=== PATIENT | female | born 1980 | race American Indian/Alaskan Native ===

== ENCOUNTER 2018-03-21 08:19 | Emergency (ER) | payer MEDICAID ==
[2018-03-21 08:27] VITALS: O2SAT 98
[2018-03-21] MEDS ORDERED: Sodium Chloride 0.9% 1,000 ML IV STA (09:11)
[2018-03-21 09:49] LABS: BASO % 0.9 % (0.0-2.0); EOS # 0.1 K/uL (0.0-0.7); EOS % 3.1 % (0.0-4.0); HEMOGLOBIN 14.2 g/dL (12.0-16.0); LYMPH # 0.8 K/uL (1.0-4.3); LYMPH % 17.6 % (20.0-40.0); MEAN CELL VOLUME 96.3 fl (81.0-99.0); MEAN CORPUSCULAR HEMOGLOBIN 31.7 pg (27.0-31.0); MEAN CORPUSCULAR HGB CONC 32.9 g/dL (33.0-37.0); MEAN PLATELET VOLUME 10.4 fl (7.2-11.7); MONO # 0.7 K/uL (0.0-0.8); NEUT # 2.8 K/uL (1.8-7.0); NEUT % 63.4 % (50.0-75.0); NRBC % 0.2 % (0.0-0.0); RBC 4.47 Mil/uL (3.80-5.20); RED CELL DISTRIBUTION WIDTH 12.9 % (11.5-14.5); WHITE BLOOD COUNT 4.4 K/uL (4.8-10.8)
[2018-03-21 09:53] LABS: BLOOD UREA NITROGEN 8 mg/dl (7-17); CALCIUM 8.9 mg/dL (8.4-10.2); GFR NON-AFRICAN AMERICAN > 60
--- NOTE | 2018-03-21 10:00 | ED PDOC ---
History of Present Illness History of Present Illness: 38 year old female with a history of asthma presents to the ED with several days of worsening cough, fever, sore throat and generalized body aches. Patient visited PMD for symptoms 2 days ago, was diagnosed with "flu like symptoms, and given prescriptions for a Z-pack, Robitusson with promethazine, Xyzal and albuterol. Since then her fever has gotten higher and the pain has worsened. She reports not taking cough syrup because it makes her drowsy and she has to work. Patient controls her asthma with an albuterol inhaler. Denies recent travel and did not receive her flu shot. PMD: Dr. Parmjit Ram HPI: Influenza Time Seen by Provider: 03/21/18 08:47 Chief Complaint: Flu-like Symptoms Chief Complaint (Provider): Flu-like Symptoms History Per: Patient Exam Limitations: no limitations Have you had recent travel within the past 21 days to any of: No Onset/Duration Of Symptoms: Days (several) Symptoms include: fever, bodyaches, sore throat, cough Past Medical History Reviewed: Historical Data, Nursing Documentation, Vital Signs Vital Signs: Last Vital Signs Temp 100.4 F H 03/21/18 08:27 Pulse 134 H 03/21/18 08:27 Resp 16 03/21/18 08:27 BP 121/75 03/21/18 08:27 Pulse Ox 98 03/21/18 08:27 - Medical History PMH: Hypercholesterolemia - Surgical History Surgical History: No Surg Hx - Family History Family History: States: Unknown Family Hx - Immunization History Hx Tetanus Toxoid Vaccination: No Hx Influenza Vaccination: No Hx Pneumococcal Vaccination: No - Home Medications Home Medications: Ambulatory Orders Medication Instructions Recorded Ciprofloxacin [Cipro] 1 tab PO BID #14 tab 03/03/16 Pravastatin Sodium [Pravachol] 20 mg PO DAILY 03/03/16 metroNIDAZOLE 0.75% [Metrogel 7 applic VAG HS #1 tube 03/03/16 Cream] - Allergies Allergies/Adverse Reactions: Allergies Allergy/AdvReac Type Severity Reaction Status Date / Time morphine Allergy VOMITING Verified 03/03/16 18:35 Review of Systems ROS Statement: Except As Marked, All Systems Reviewed And Found Negative Constitutional: Positive for: Fever, Other (generalized body aches) ENT: Positive for: Throat Pain Respiratory: Positive for: Cough (worsening) Physical Exam - Reviewed Nursing Documentation Reviewed: Yes Vital Signs Reviewed: Yes - Physical Exam Appears: Positive for: No Acute Distress Head Exam: Positive for: ATRAUMATIC Skin: Positive for: Normal Color, Warm, Dry Eye Exam: Positive for: EOMI, Normal appearance, PERRL Neck: Positive for: Normal, Painless ROM, Supple Cardiovascular/Chest: Positive for: Regular Rate, Rhythm. Negative for: Murmur Respiratory: Positive for: Wheezing (faint wheeze bilaterally). Negative for: Respiratory Distress Gastrointestinal/Abdominal: Positive for: Normal Exam, Soft. Negative for: Tenderness Extremity: Positive for: Normal ROM (upper and lower extremities). Negative for: Deformity Neurologic/Psych: Positive for: Alert, Oriented. Negative for: Motor/Sensory Deficits Medical Decision Making Medical Decision Makin:09 MDM: workup for worsening flu like illness Labs, CXR, Motrin and IV fluids ordered Discussed possibility of symptoms being caused by a virus, in which case antibiotics will do nothing. Reassess patient. 1058 Labs WNL and tested positive for Influenza A. Further discussion with patient reveals symptoms started about 4 days ago therefore pt is out of the time frame for intitiating Tamiflu. Pt advised to increase rest and hydration while symptoms last. Pt encouraged to continue with cough syrup, Z-pack, and Motrin/Tylenol. Discussed taking her daughter for medical evaluation for prophylactic Tamiflu if necessary. Return parameters discussed. Work note given. Scribe Attestation: Documented by Valerie Emerson acting as a scribe for Mallorie Vadlivia MD Provider Scribe Attestation: All medical record entries made by the Scribe were at my direction and personally dictated by me. I have reviewed the chart and agree that the record accurately reflects my personal performance of the history, physical exam, medical decision making, and the department course for this patient. I have also personally directed, reviewed, and agree with the discharge instructions and disposition. - Laboratory Results Result Diagrams: 03/21/18 09:32 03/21/18 09:32 - ECG O2 Sat by Pulse Oximetry: 98 Disposition - Clinical Impression Clinical Impression: Influenza - Disposition Disposition: Routine/Home Disposition Time: 10:58 Condition: STABLE Additional Instructions: Increase rest and hydration while symptoms last. Continue to take antibiotics as prescribed. Continue to take cough syrup as needed but do not drive or operate machinery if taking the cough syrup because it will make you drowsy. Take Motrin or Tylenol as needed for fever/pain. Return to the emergency department if symptoms worsen or if new symptoms develop. Instructions: Flu, Adult (DC) Forms: [employer] ([employer]), [facility] ED School/Work Excuse Print Language: MONGOLIAN
--- NOTE | 2018-03-21 10:55 | RAD ---
Date of service: 03/21/2018 HISTORY: Cough and fever COMPARISON: No prior. TECHNIQUE: Chest PA and lateral FINDINGS: LINES AND TUBES: None. LUNG AND PLEURA: The lungs are well inflated and clear. No pleural effusion or pneumothorax. HEART AND MEDIASTINUM: The heart is not enlarged. No aortic atherosclerotic calcification present. The hilar and mediastinal contours are within normal limits. SKELETAL STRUCTURES: The bony structures are within normal limits for the patient's age. VISUALIZED UPPER ABDOMEN: Normal. OTHER FINDINGS: None. IMPRESSION: No active pulmonary disease.
[2018-03-21 11:18] VITALS: RESP 19
[2018-03-21 11:58] VITALS: BP 106/78; PULSE 78; TEMP 99.1
== END 2018-03-21 11:59 | disposition home or self-care (01) ==
LOC: H.ER 08:19
DX: J11.1 Influenza due to unidentified influenza virus with other respiratory manifestations (principal); J45.909 Unspecified asthma, uncomplicated; E78.00 Pure hypercholesterolemia, unspecified
CPT/HCPCS: 71046; 80048; 81025; 85025; 87070; 87430; 87804; 99282; J7030